=== PATIENT | male | born 1990 | race Caucasian/White ===

== ENCOUNTER 2018-12-24 15:49 | Emergency (ER) | payer OTHER ==
[~2018-12-24] VITALS: Ht 185.4 cm; Wt 113.6 kg
[2018-12-24 15:57] VITALS: TEMP 98.2
[2018-12-24 17:17] VITALS: BP 119/84; PULSE 76
== END 2018-12-24 17:17 | disposition home or self-care (01) ==
LOC: COL.ER 15:49
DX: S61.012A Laceration without foreign body of left thumb without damage to nail, initial encounter (principal); W26.8XXA Contact with other sharp object(s), not elsewhere classified, initial encounter; Y92.009 Unspecified place in unspecified non-institutional (private) residence as the place of occurrence of the external cause